=== PATIENT | female | born 1965 | race Caucasian/White ===

== ENCOUNTER 2024-05-14 19:36 | Emergency (ER) | payer MEDICARE, SELFPAY ==
[2024-05-14 19:39] VITALS: BP 140/65
[2024-05-14 20:09] LABS: COVID-19 Antigen Negative (Negative)
--- NOTE | 2024-05-14 21:17 | ED.GENMED ---
History of Present Illness
General
Chief Complaint: Breathing Problem
Source: patient
Exam Limitations: none
Time Seen by Provider: 05/14/24 21:07
History of Present Illness
History of Present Illness:
See MDM
Past History
Past History
ED Past Medical History: HTN and NIDDM
ED Past Surgical History: None
Social History
Tobacco: Smoker
Alcohol: None
Phy Exam
Physical Exam
Physical Exam:
See MDM
Scores
Heart Failure Risk
Heart Failure Risk Score: Not Applicable
Course
Orders/Labs/Results
Orders:
Orders
05/14/24 19:42
CXR2 [CR Chest - 2 Views ] Urgent
Comment: 93%PULSE OX
Reason For Exam: DIFFICULTY BRETHING RECENT PNA
05/14/24 19:45
COVID-19 Antigen Urgent
Source: Nasal Swab
Influenza A+B Rapid Molecular Urgent
BEENA Source: Nasal Swab
Specimen Description:
05/14/24 21:15
CT Chest Pe Study Urgent
Comment:
Reason For Exam: pain with inspiration
Ipratropium/Albuterol Sulfate [Duoneb] 3 ml INH R NOW STA
05/14/24 21:16
Electrocardiogram (*1) Urgent
Reason for Study: Shortness of Breath
EKG- Treatment ONCE
05/14/24 21:53
Complete Blood Count/With Diff Urgent
Lactic Acid Q4H
Comment: CANCEL 2nd LACTIC ACID IF 1st LACTIC ACID IS LESS THAN 2
NT-proBNP Urgent
Troponin I Urgent
05/14/24 22:31
Basic Metabolic Panel Urgent
05/14/24 23:22
Acetaminophen [Tylenol] 650 mg .ROUTE .STK-MED ONE
05/14/24 23:29
Acetaminophen [Tylenol] 650 mg PO NOW STA
05/15/24 01:30
Lactic Acid Q4H
Comment: CANCEL 2nd LACTIC ACID IF 1st LACTIC ACID IS LESS THAN 2
Abnormal Lab Results
05/14/24 05/14/24
21:53 22:31
MCHC 32.9 L g/dL
(33.0-37.0)
Plt Count 76 L 10^3/uL
(130-400)
MPV 12.4 H fL
(7.4-10.4)
Absolute Lymphs (auto) 0.6 L 10^3/uL
(1.2-3.4)
Absolute Monos (auto) 0.7 H 10^3/uL
(0.1-0.6)
Neutrophils % 77.4 H %
(42.2-75.2)
Lymphocytes % 9.2 L %
(20.5-51.1)
Monocytes % 10.9 H %
(1.7-9.3)
Sodium 134 L mmol/L
(135-145)
BUN 20 H mg/dl
(7-17)
Glucose 392 H mg/dl
(70-99)
05/14/24 21:53
05/14/24 22:31
Vital Signs
Initial and Last Documented VS:
Initial Vital Signs
Temp Pulse Resp BP Pulse Ox
100.4 F H 78 24 140/65 93
05/14/24 19:39 05/14/24 19:39 05/14/24 19:39 05/14/24 19:39 05/14/24 19:39
Last Documented Vital Signs
Temp Pulse Resp BP Pulse Ox
97.9 F 76 16 116/64 93
05/14/24 22:32 05/14/24 22:32 05/14/24 22:32 05/14/24 22:32 05/14/24 22:32
MDM/Problems Addressed
Differential Diagnosis Includes:
HPI and MDM Narrative:
58-year-old female presenting with shortness of breath, cough and pain with inspiration. She was diagnosed with pneumonia recently and finished a course of amoxicillin which did not help. She is an active smoker. She recently got off a plane
ride. Chest x-ray was done prior to my evaluation which shows concern for hilar mass versus pneumonia. Given her symptoms, will obtain CT rule out PE to assess for PE, pneumonia or cancer
Physical exam
General: Well appearing and non-toxic
HEENT: protecting airway
Neck: appears supple
CV: No evidence of cyanosis. Regular rate and rhythm
Resp: No accessory muscle use. Rhonchorous breath sounds and expiratory wheezing noted
Abd: Non-distended
Extremities: No deformities
Neuro: alert
Psych: Normal affect
Skin: Intact
Problems Addressed including Acute and Chronic Conditions affecting care:
1. Shortness of breath
Acuity: acute
Prognosis: stable
Details: Will give dose of DuoNeb
2. Pleuritic chest pain
Acuity: acute
Prognosis: stable
Details: Will obtain CT to rule out mass versus PE
3. Hyperglycemia
Acuity: acute
Prognosis: stable
Details: Patient states she has not been compliant with her insulin
Updates
CT chest consistent with hydrothorax which is likely related from her ascites. I discussed admitting her overnight to be evaluated by interventional radiology for thoracentesis. Patient declined and understands the risks of going home. Her friend
at bedside also acknowledged her capacity to make this decision. Patient states she has not been taking her Lasix as prescribed. She states she will restart her Lasix. I also mentioned her uncontrolled diabetes. Patient also admits to
noncompliance to insulin. No evidence of DKA. She states she will take her insulin as prescribed
Differential Diagnosis (but not limited to): Lung cancer, COPD, pneumonia
Testing considered: DVT ultrasound but no clinical evidence of DVT
Drug therapy (if applicable): OTC meds, please see d/c instruction regarding Rx drugs
Amount and/or Complexity of Data Reviewed
Clinical info obtained from: Patient
External data reviewed: N/A
Labs I independently reviewed (but not limited to): Hyperglycemia
Radiology: X-ray independently reviewed: Chest x-ray concerning for pneumonia versus possible mass
The CT scan was personally and independently reviewed. In addition, official CT report reviewed.
Pulse Ox: not hypoxic
EKG independently reviewed: normal sinus rhythm, normal axis, no STEMI
Care Director: N/A
Critical Care: Sinus rhythm
Risk of Complication:
Social Determinants of health: Good social support
Discussed with other providers: N/A
Escalation of Care includes Admit/Obs: I suggested admission for thoracentesis but patient declined and will be discharged and understands risks
Occasional wrong word or 'sound a like' substitutions may have occurred due to the inherent limitations of voice recognition software. Read the chart carefully and recognize, using context, where substitutions have occurred.
*Critical Care Note
Total Time (30-74mins, 75-104mins- exclusive of procedures): Not Applicable
ED Attending Note
-
Portions of this chart may have been created with voice recognition software.� Occasional wrong word or��sound alike� substitutions may have occurred due to the inherent limitations of voice recognition software.
Discharge Plan
Departure
Patient Disposition: Home (Routine Discharge)
Date of Disposition: 05/14/24
Time of Disposition: 23:57
Patient with high blood pressure during this ER visit?: No
Discharge Problem:
Hydrothorax, Hyperglycemia
Referrals:
NONE,* [Family Provider] -
Lorenzo Figueroa, DO [Active] -
Activity Restrictions/Additional Instructions:
As we discussed, your shortness of breath is due to your ascites fluid going into your chest, known as hydrothorax. You must take your water pills as prescribed. You will likely need a procedure called thoracentesis where they drained the fluid
from your chest. Please call the interventional radiology office to make an appointment.
We had discussed admitting overnight to have this performed in the morning. If you develop any worsening symptoms, you must return immediately.
Your blood sugar was also elevated. You need to take your insulin as prescribed.
Please return for any worsening symptoms.
You may return at any time if you have further concerns.
Please follow up with your doctor at the first available appointment, preferably this week.
Thank you for choosing [facility].
Interventions
Interventions:
*Risk Screen - Suicide Last Done: 05/14/24 19:39
*General Assessment Last Done: 05/14/24 21:56
*Neglect/Abuse Screening Last Done: 05/14/24 19:39
*ED COVID-19 Vaccine History Last Done: 05/14/24 21:56
ED- Cardiac Assessment Last Done: 05/14/24 21:57
ED- Pulmonary Assessment Last Done: 05/14/24 21:57
Discharge Date and Time
Print Language: SURINAMESE
[2024-05-14] MEDS: DUONEB 3 ML INH (21:54)
[2024-05-14 21:56] VITALS: BMI 34.2
[2024-05-14 22:21] LABS: Lactic Acid 1.5 mmol/L (0.7-2.0)
[2024-05-14 22:32] VITALS: BP 116/64
[2024-05-14 22:34] LABS: NT-proBNP 177 pg/ml; Troponin I < 0.012 ng/ml
[2024-05-14 22:39] LABS: % Basophils 0.4 % (0-2); % Eosinophils 1.8 % (0-6); % Immature Granulocytes 0.3 % (0-0.5); % Lymphocytes 9.2 % (20.5-51.1); % Monocytes 10.9 % (1.7-9.3); % Neutrophils 77.4 % (42.2-75.2); Absolute Eosinophils 0.1 10^3/uL (0-0.7); Absolute Lymphocytes 0.6 10^3/uL (1.2-3.4); Absolute Monocytes 0.7 10^3/uL (0.1-0.6); Absolute Neutrophils 5.2 10^3/uL (1.4-6.5); Hematocrit 39.8 % (37.0-47.0); Hemoglobin 13.1 g/dL (12.0-16.0); Mean Corp Hgb Conc. 32.9 g/dL (33.0-37.0); Mean Corpuscular Volume 88.2 fL (81.0-99.0); Mean Platelet Volume 12.4 fL (7.4-10.4); Nucleated Red Blood Cells % 0 %; Platelet Count 76 10^3/uL (130-400); Red Blood Cell Count 4.51 10^6/uL (4.20-5.40); Red Cell Dist. Width 14.4 % (11.5-14.5); White Blood Cell Count 6.8 10^3/uL (4.8-10.8)
[2024-05-14 22:59] LABS: Blood Urea Nitrogen 20 mg/dl (7-17); Calcium 8.7 mg/dl (8.4-10.2); Carbon Dioxide 27 mmol/L (22-30); Chloride 99 mmol/L (98-107); Estimated Creatinine Clearance 81 ml/min; Glucose 392 mg/dl (70-99); Sodium 134 mmol/L (135-145); eGFR > 60.00
[2024-05-14] MEDS: TYLENOL 650 MG PO (23:29)
[2024-05-15 00:20] VITALS: BP 125/72
== END 2024-05-15 00:21 | disposition home or self-care (01) ==
LOC: EMR 19:36
PROVIDERS: Nurse Practitioner; EMERGENCY PHYSICIAN Student in an Organized Health Care Education/Training Program
DX: J94.8 Other specified pleural conditions (principal); E11.65 Type 2 diabetes mellitus with hyperglycemia; I10 Essential (primary) hypertension; F17.200 Nicotine dependence, unspecified, uncomplicated
CPT/HCPCS: 99284; 94640; 71046; 71275; 80048; 83605; 83880; 84484; 85025; 87502; 87811; 93005; Q9967